=== PATIENT | male | born 1945 | race Caucasian/White ===

== ENCOUNTER 2018-05-01 10:52 | Inpatient (IN) ==
[2018-05-01 11:09] LABS: BE -4.9 mmoll (-3.0-3.0); BLOOD TYPE ARTERIAL; HCO3-(ACT) 20.8 mmoll (20.0-26.0); METHB 1.1 % (0.0-1.5); SAMPLE BLOOD; SAO2 89.7 % (95.0-100.0); pH(98.6) 7.24 (7.35-7.45)
[2018-05-01 11:12] LABS: MODALITY ROOM AIR; O2HB 86.5 % (95.0-99.0); PCO2(98.6) 54 mmHg (35-45); PO2(98.6) 58 mmHg (60-100)
[2018-05-01 11:13] LABS: ALLEN TEST YES
[2018-05-01 11:23] LABS: BASO# 0.02 X1000 (0.0-0.2); BASO% 0.2 % (0.0-0.8); EOS# 0.02 X1000 (0.0-0.7); EOS% 0.2 % (0.0-10.0); HEMATOCRIT 41.9 % (42.0-52.0); HEMOGLOBIN 13.5 g/dL (14.0-18.0); IMM GRAN# 0.07 X1000 (0.0-0.04); IMM GRAN% 0.7 % (0.0-0.5); LYMPH# 1.31 X1000 (1.2-3.4); LYMPH% 13.8 % (20.5-51.1); MCH 30.1 PG (27-31); MCHC 32.2 g/dL (33-37); MCV 93.5 FL (81-99); MONO# 0.55 X1000 (0.11-0.59); MONO% 5.8 % (1.7-9.3); MPV 11.2 FL (7.4-10.4); NEUT# 7.51 X1000 (1.4-6.5); NEUT% 79.3 % (42.2-75.2); PLT 221 X1000 (130-400); RBC 4.48 XMIL (4.7-6.1); RDW 15.3 % (11.5-14.5); WBC 9.48 X1000 (4.8-10.8)
--- NOTE | 2018-05-01 11:30 | Diag Imaging Result Doc PS360 ---
EXAM: CT HEAD W/O CONTRAST HISTORY: Head injury TECHNIQUE: CT head without contrast COMPARISON: None. FINDINGS: No parenchymal hemorrhage. No epidural or subdural hematoma. No subarachnoid hemorrhage. No mass identified on this noncontrasted exam. No hydrocephalus. No skull fracture. IMPRESSION: No hemorrhage. No injury. This exam was performed using automated exposure control, adjustment of mA or kV according to patient size, and/or use of iterative reconstruction technique. Electronically signed by Yves Bhakta 05/01/2018 11:27 AM
--- NOTE | 2018-05-01 11:32 | Diag Imaging Result Doc PS360 ---
EXAM: CHEST-PORTABLE HISTORY: ams TECHNIQUE: Portable chest single view COMPARISON: None. FINDINGS: The lungs are well expanded. There are increased interstitial markings bilaterally in the mid lungs. No consolidation. The heart is not enlarged. IMPRESSION: Bilateral infiltrates. Electronically signed by Yves Bhakta 05/01/2018 11:30 AM
[2018-05-01 11:40] LABS: INR 1.01; PROTIME 13.8 Seconds (11.0-16.0)
[2018-05-01 11:41] LABS: PTT 30.4 Seconds (22.3-41.8)
--- NOTE | 2018-05-01 11:41 | EKG Report ---
Test Performed on : 05/01/2018 11:40:30 AM Test Reason : ams Blood Pressure : / mmHG Vent. Rate : 065 BPM Atrial Rate : 063 BPM P-R Int : 000 ms QRS Dur : 128 ms QT Int : 506 ms P-R-T Axes : 042 046 -74 degrees QTc Int : 526 ms Undetermined rhythm Nonspecific intraventricular block Cannot rule out Inferior infarct , age undetermined Cannot rule out Anterior infarct , age undetermined Abnormal ECG When compared with ECG of 30-JUL-2010 10:45, Significant changes have occurred Unconfirmed Result
[2018-05-01 11:49] LABS: CALCIUM 8.6 mg/dL (8.8-10.2); CREATININE 1.2 mg/dL (0.7-1.2); POTASSIUM 4.5 mmol/L (3.5-5.1); TOTAL BILIRUBIN 0.6 mg/dL (0.20-1.00); TOTAL PROTEIN 7.4 g/dL (6.3-8.3)
[2018-05-01] MEDS ORDERED: D50W SYRINGE ONE (11:54)
[2018-05-01] MEDS ORDERED: D50W SYRINGE IV ONE ×2 (11:56→13:05)
[2018-05-01 12:15] LABS: CK INDEX 1.8 (0.0-2.5); CK-MB 5.78 ng/mL (0.0-5.0)
[2018-05-01] MEDS: D5 NS 1,000 ML IV SCH (13:19)
--- NOTE | 2018-05-01 14:42 | PROVIDER DOCUMENTATION ---
This chart was entered by Mirian Ibrahim Scribe, acting as scribe for Isaías Vides MD. HPI-Neurological Disorder - General Chief Complaint: Altered Mental Status Stated Complaint: ams Time Seen by Provider: 05/01/18 11:05 Source: EMS Home Medications: Home Medication List Medication Instructions Recorded Confirmed Last Taken Type Amlodipine [Norvasc] 1 tab PO DAILY 05/01/18 05/01/18 Unknown History Atenolol [Tenormin] 100 mg PO DAILY 05/01/18 05/01/18 Unknown History Ezetimibe [Zetia] 1 tab PO DAILY 05/01/18 05/01/18 Unknown History Fluoxetine HCl [Prozac] 10 mg PO DAILY 05/01/18 05/01/18 Unknown History Furosemide [Lasix] 40 mg PO DAILY 05/01/18 05/01/18 Unknown History Glipizide [Glucotrol] 10 mg PO DAILY 05/01/18 05/01/18 Unknown History - History of Present Illness-Neuro Nature of Presenting Problem: Patient is a 73 year old male who presents to the ED via EMS with altered mental status. EMS states patient's found patient unresponsive in his recliner around 1015 this morning. EMS states patient's last saw the patient normal around 0200 this morning. EMS states patient's FSBS was 33 on their arrival. EMS states giving patient 1.5 amps of D50. Severity: reports: moderate Onset/Duration: reports: unsure Timing: reports: still present Context: reports: found unresponsive by family, low blood sugar (33) Character of Altered Mental Status: reports: unresponsive Any recent trauma/injury?: reports: none Associated Symptoms: reports: denies symptoms Similar Symptoms Previously?: No Recently seen or treated by another doctor?: No Review of Systems - Adult - REVIEW OF SYSTEMS - ADULT ROS:: ROS per family () Constitutional: reports: no symptoms reported Eyes: reports: no symptoms reported Ears, Nose, Mouth & Throat: reports: no symptoms reported Cardiovascular: reports: no symptoms reported Respiratory: reports: no symptoms reported Gastrointestinal: reports: no symptoms reported Genitourinary: reports: no symptoms reported Musculoskeletal: reports: no symptoms reported Integumentary: reports: no symptoms reported Neurological: reports: other (AMS - unresponsive). denies: dizziness/vertigo, headache/migraines, numbness, seizure Psychiatric: reports: no symptoms reported Endocrine: reports: no symptoms reported Hematologic/Lymphatic: reports: no symptoms reported Allergic/Immunologic: reports: no symptoms reported All Other Systems: Reviewed and Negative Past History - Adult - PAST MEDICAL HISTORY-ADULT Review of Records: reports: Nursing Assessment Review, Medications Reviewed, Social history reviewed & non-contributory. Major Childhood Illnesses: reports: denies history Cardiovascular: reports: denies history Respiratory: reports: denies history Gastrointestinal: reports: denies history Obstetrical/Gynecological: reports: denies history Genitourinary: reports: denies history Musculoskeletal: reports: denies history Neurological: reports: denies history Endocrine/Immune: reports: denies history Other Conditions: reports: denies history - PRIOR SURGERIES/PROCEDURES Surgical/Procedure History: reports: reviewed, not pertinent - IMMUNIZATION STATUS Childhood Immunizations: See Nurse Assessment Flu Vaccine: See Nurse Assessment - FAMILY HISTORY Family History: reviewed, not pertinent Physical Exam- Neurological - Physical Exam-Neuro Initial Vital Signs Reviewed: Yes General Appearance: lethargic, other (posturing) Eye Exam: bilateral eye: other (2 mm ) Head Injury: no evidence of injury Respiratory: chest non-tender, lungs clear, normal breath sounds Cardiovascular: normal peripheral pulses, regular rate, rhythm Abdominal Exam: normal bowel sounds, non tender, soft Extremity: other (post surgical changes to left foot. 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48 RBC 4.48 L Hgb 13.5 L Hct 41.9 L MCV 93.5 MCH 30.1 MCHC 32.2 L RDW Std Deviation 15.3 H Plt Count 221 MPV 11.2 H Immature Gran % (Auto) 0.7 H Neut % (Auto) 79.3 H Lymph % (Auto) 13.8 L [place] % (Auto) 5.8 Eos % (Auto) 0.2 Baso % (Auto) 0.2 Immature Gran # (Auto) 0.07 H Neut # (Auto) 7.51 H Lymph # (Auto) 1.31 [place] # (Auto) 0.55 Eos # (Auto) 0.02 Baso # (Auto) 0.02 PT INR PTT (Actin FS) Specimen Type ARTERIAL Sample Site R RADIAL pH 7.24 L pCO2 54 H* pO2 58 L HCO3 20.8 Base Excess -4.9 L Oxyhemoglobin 86.5 L* ABG O2 Sat (Calculated) 17.0 ABG O2 Saturation 89.7 L ABG Carboxyhemoglobin 2.50 ABG Methemoglobin 1.1 Jose Test YES A-a O2 Difference 24.0 Total Hemoglobin 14.0 Lactate 3.40 H Blood Gas Modality ROOM AIR FiO2 % 21.0 Sodium Potassium Chloride Carbon Dioxide Anion Gap BUN Creatinine Estimated GFR/1.73 m2 BUN/Creatinine Ratio Glucose POC Glucose 101 Calculated Osmolality Calcium Total Bilirubin AST ALT Alkaline Phosphatase Creatine Kinase Creatine Kinase Index CK-MB (CK-2) Troponin T Total Protein Albumin Globulin Albumin/Globulin Ratio Plasma Lactate 05/01/18 05/01/18 05/01/18 11:15 11:15 11:15 WBC RBC Hgb Hct MCV MCH MCHC RDW Std Deviation Plt Count MPV Immature Gran % (Auto) Neut % (Auto) Lymph % (Auto) [place] % (Auto) Eos % (Auto) Baso % (Auto) Immature Gran # (Auto) Neut # (Auto) Lymph # (Auto) [place] # (Auto) Eos # (Auto) Baso # (Auto) PT 13.8 INR 1.01 PTT (Actin FS) 30.4 Specimen Type Sample Site pH pCO2 pO2 HCO3 Base Excess Oxyhemoglobin ABG O2 Sat (Calculated) ABG O2 Saturation ABG Carboxyhemoglobin ABG Methemoglobin Jose Test A-a O2 Difference Total Hemoglobin Lactate Blood Gas Modality FiO2 % Sodium 140 Potassium 4.5 Chloride 103 Carbon Dioxide 22 L Anion Gap 15 BUN 30 H Creatinine 1.2 Estimated GFR/1.73 m2 60 BUN/Creatinine Ratio 25 Glucose 117 H POC Glucose Calculated Osmolality 287 Calcium 8.6 L Total Bilirubin 0.60 AST 29 ALT 28 Alkaline Phosphatase 105 Creatine Kinase 319 H Creatine Kinase Index 1.8 CK-MB (CK-2) 5.78 H Troponin T Total Protein 7.4 Albumin 4.0 Globulin 3.0 Albumin/Globulin Ratio 1.0 Plasma Lactate 3.3 H 05/01/18 05/01/18 05/01/18 11:15 11:55 12:59 WBC RBC Hgb Hct MCV MCH MCHC RDW Std Deviation Plt Count MPV Immature Gran % (Auto) Neut % (Auto) Lymph % (Auto) [place] % (Auto) Eos % (Auto) Baso % (Auto) Immature Gran # (Auto) Neut # (Auto) Lymph # (Auto) [place] # (Auto) Eos # (Auto) Baso # (Auto) PT INR PTT (Actin FS) Specimen Type Sample Site pH pCO2 pO2 HCO3 Base Excess Oxyhemoglobin ABG O2 Sat (Calculated) ABG O2 Saturation ABG Carboxyhemoglobin ABG Methemoglobin Jose Test A-a O2 Difference Total Hemoglobin Lactate Blood Gas Modality FiO2 % Sodium Potassium Chloride Carbon Dioxide Anion Gap BUN Creatinine Estimated GFR/1.73 m2 BUN/Creatinine Ratio Glucose POC Glucose 68 L 65 L Calculated Osmolality Calcium Total Bilirubin AST ALT Alkaline Phosphatase Creatine Kinase Creatine Kinase Index CK-MB (CK-2) Troponin T < 0.010 Total Protein Albumin Globulin Albumin/Globulin Ratio Plasma Lactate Orders Category Date Time Status Cardiac Monitoring DIRECTED Care 05/01/18 11:03 Active Finger Stick Blood Sugar (ED) DIRECTED Care 05/01/18 11:03 Active Oxygen Therapy- ED Nursing DIRECTED Care 05/01/18 11:03 Active Saline Loc NOW Care 05/01/18 11:03 Active CHEST-PORTABLE [RAD] Stat Exams 05/01/18 11:[address] HEAD W/O CONTRAST [CT] Stat Exams 05/01/18 11:03 Completed ABG [RESP] Routine Lab 05/01/18 10:57 Completed CBC WITH ELECTRONIC DIFF [HEME] Stat Lab 05/01/18 11:15 Completed CK PROFILE [SP CHEM] Stat Lab 05/01/18 11:15 Completed COMPREHENSIVE METABOLIC PANEL [CHEM] Stat Lab 05/01/18 11:15 Completed LACTATE, PLASMA [CHEM] Stat Lab 05/01/18 11:15 Completed PROTIME WITH INR [COAG] Stat Lab 05/01/18 11:15 Completed PTT [COAG] Stat Lab 05/01/18 11:15 Completed TROPONIN T Stat Lab 05/01/18 11:15 Completed Dextrose 50% Syringe [D50w Syringe] Med 05/01/18 11:54 Discontinued 50 ml .ROUTE .STK-MED ONE Dextrose 50% Syringe [D50w Syringe] Med 05/01/18 11:56 Discontinued 50 ml IV NOW ONE Altered Mental Status Stat Oth 05/01/18 11:02 Ordered EKG [EKG] Stat Ther 05/01/18 11:03 Draft Transfer/Admit Order [TRANSFER] Routine Transfer 05/01/18 12:21 Ordered Result Diagrams: 05/01/18 11:15 05/01/18 11:15 - EKG 1 Time of EKG reading by physician:: 11:40 EKG Read and Signed by:: Isaías Vides EKG Interpretation (*Must complete 3 of following elements*): Abnormal (cannot rule out inferior infarct, age undetermined; cannot rule out anterior infarct, age undetermined) Rate: 65 Rhythm: undetermined rhythm Comments: nonspecific intraventricular block; - XRAY 1 XRAY Study: Chest Impression: See EMR Report ( EXAM: CHEST-PORTABLE HISTORY: ams TECHNIQUE: Portable chest single view COMPARISON: None. FINDINGS: The lungs are well expanded. There are increased interstitial markings bilaterally in the mid lungs. No consolidation. The heart is not enlarged. IMPRESSION: Bilateral infiltrates. Electronically signed by Yves Bhakta 05/01/2018 11:30 AM 05/01/18 1130 Interpreting Physician: Yves Bhakta MD Dictated Date/Time: 05/01/18 1129 cc: Isaías Vides MD;) - CT/MRI 1 CT Study: Head Impression: See EMR Report ( EXAM: CT HEAD W/O CONTRAST HISTORY: Head injury TECHNIQUE: CT head without contrast COMPARISON: None. FINDINGS: No parenchymal hemorrhage. No epidural or subdural hematoma. No subarachnoid hemorrhage. No mass identified on this noncontrasted exam. No hydrocephalus. No skull fracture. IMPRESSION: No hemorrhage. No injury. This exam was performed using automated exposure control, adjustment of mA or kV according to patient size, and/or use of iterative reconstruction technique. Electronically signed by Yves Bhakta 05/01/2018 11:27 AM 05/01/18 1127 Interpreting Physician: Yves Bhakta MD Dictated Date/Time: 05/01/18 1123 cc: Isaías Vides MD;) - CONSULTS/PCP/HOSPITALIST Notification #1 *Consult/PCP/Hospitalist*: Dr. Reina Time Discussed: 11:52 Reason/Comments: Dr. Vides consulted with Dr. Reina about patient. Consult Disposition: Will see in ED, Admit Departure - Departure Date of Disposition Decision: 05/01/18 Time of Disposition Decision: 12:00 DIAGNOSIS: Altered mental status, Hypoglycemia Disposition: ADMITTED INPATIENT 09 Certified Medical Emergency: Emergent Condition: Fair - Critical Care Note This patient required my direct & personal management of CC.: Yes Total Time (mins): 31 Critical Care Statement: This patient required my direct personal management to treat or rule out processes, the absence of which, could potentiallly result in sudden, clinically significant life or limb threatening deterioration. Attestation - Physician/ POLLY Attestation The physician spent face to face time with patient:: Yes Advanced Practice Provider documentation review:: Supervising physician onsite and consulted in the evaluation and care of this patient. The physician did have a face to face encounter with the patient. This chart was documented by the indicated scribe, (Mirian Ibrahim Scribe) and accurately reflects the services I performed and decisions made by me, Isaías Vides MD, as attested by the provider's signature.
[2018-05-01] MEDS ORDERED: ZITHROMAX 500 MG/NS 500 MG/250 ML IVPB ONE (14:43)
[2018-05-01] MEDS: DUONEB (A & A) INH SCH ×3 (14:55→22:42)
[2018-05-01] MEDS: ZITHROMAX 500 MG/NS 500 MG/250 ML IVPB IV SCH (14:55)
--- NOTE | 2018-05-01 15:17 | HISTORY AND PHYSICAL ---
PRIMARY CARE PHYSICIAN: Dr. Bin Newman. CHIEF COMPLAINT: Found unresponsive by this morning around 1015 hours. HISTORY OF PRESENTING ILLNESS: This is a 73-year-old male, who presents to [facility] ER via EMS after he was found unresponsive this morning in his recliner around 1015 hours. The states that she last saw him normal around 2 a.m. the morning of arrival today. When EMS arrived, his blood sugar was 33. They gave him 1.5 amps of D 50. When he arrived to the emergency room, he had an O2 saturation on room air of 95. His core temp was 92.3. We did a chest x-ray also that showed bilateral infiltrates. He was placed on a Bear Hugger and his temperature is now up to 97.5. His blood sugar is now up to 95. In the emergency room he was given another 50 mL of D 50. Placed on D 5 NS at 50 mL an hour, and is being admitted to the intensive care unit for further evaluation and treatment. PAST MEDICAL HISTORY: Diabetes type 2, hypertension, restless leg syndrome, hyperlipidemia, depression and insomnia. PAST SURGICAL HISTORY: A melanoma removed from his head and neck. FAMILY HISTORY: Reviewed and noncontributory. SOCIAL HISTORY: Currently lives with family. He is a former smoker, but denies any current use. Denies any alcohol or illicit drug use. ALLERGIES: Unknown at this time. HOME MEDICATIONS: He takes Norvasc 10 mg p.o. daily, Tenormin 100 mg p.o. daily, Zetia 10 mg p.o. daily, Prozac 10 mg p.o. daily, Lasix 40 mg p.o. daily and glipizide 10 mg p.o. daily will be held. We will give all of his other home medications starting in the a.m. LABORATORY DATA: Showed a white blood cell count of 9.48, hemoglobin 13.5, hematocrit 41.9, platelets 221. PT and INR of 13.8 and 1.01. ABG showed a pH of 7.24, pCO2 54, PO2 58, bicarbonate 20.8 and this was on room air. Sodium of 140, potassium 4.5, chloride 103, CO2 22. BUN of 30, creatinine 1.2, glucose 117. It did drop again at 1155 hours down to 68. It got as low at 1 o'clock at 58, now up to 95. His plasma lactate is 3.3. X-RAYS: Chest x-ray showed bilateral infiltrates. Head CT showed no hemorrhage, no injury. REVIEW OF SYSTEMS: He denied any fever, chills, blurred vision, dizziness, chest pain. He has had a nonproductive cough, some shortness of breath. He states that this past Friday he had an allergic reaction to some shrimp that he ate, but did not go to any ER, so it is unclear if any of these issues are related to that possibly, but had no further problems since then, except the shortness of breath. Denied any abdominal pain, constipation, diarrhea, burning or hurting with urination. PHYSICAL EXAMINATION: VITAL SIGNS: He was noted to have a temperature of 92.3 degrees, pulse 63, respirations 12, blood pressure 102/75. satting 85% on room air, currently satting 97% on O2 via nasal cannula. Was placed on a Bear Hugger and temperature is now up to 97.5. GENERAL: This is a 73-year-old male, who is alert and awake, oriented to person, place, and time and answers all questions appropriately. HENT: Normocephalic, atraumatic. Normal ENT inspection. Oropharynx and nares are clear. EYES: Pupils are equal, round, reactive to light and accommodation. Extraocular movements are intact. NECK: Normal inspection, normal range of motion. LUNGS: Clear to auscultation bilaterally with equal lung expansion and chest wall movement. HEART: With regular rate and rhythm. No murmurs, rubs, or gallops. ABDOMEN: Soft, nontender, nondistended. Bowel sounds are present x4 quadrants. MUSCULOSKELETAL: He has 5/5 strength x4 extremities. NEUROLOGICAL: The cranial nerves 2-12 appear grossly intact. ASSESSMENT: 1. Diabetes type 2 with hypoglycemia. 2. Bilateral pneumonia. 3. Acute respiratory failure. 4. Sepsis secondary to all the above. PLAN: He is being admitted to the intensive care unit here at [place]. Placed on telemetry, O2 per protocol. DuoNebs q. 4 hours. He is on D 5 NS at 50 mL an hour, Rocephin 1 gram IV q. 24 hours and azithromycin 500 IV q. 24 hours. Continue his home medications. Place on neuro checks q. 2 hours, and we will do pattern blood sugars q. 4 hours. Hold his diabetic medications at this time and recheck a CBC, BMP in the a.m. Further orders after seen by attending. Dictated by LISA Gauthier for Belinda Reina MD Patient was seen by me face to face, and I agree the assessment and plan of nurse practitioner Ms. Jin. Belinda Reina MD cc: LISA Gauthier MD Chad Mcelroy, MD MTDD
[2018-05-01] MEDS: ROCEPHIN 1 GM in NS 50 ML IV SCH (16:16)
[2018-05-01 17:08] LABS: BILIRUBIN URINE NEGATIVE (NEGATIVE); BLOOD URINE NEGATIVE (NEGATIVE); CLARITY CLEAR (CLEAR); COLOR YELLOW; GLUCOSE URINE NEGATIVE (NEGATIVE); KETONE URINE NEGATIVE (NEGATIVE); LEUKOCYTES URINE TRACE (NEGATIVE); NITRITE URINE NEGATIVE (NEGATIVE); PROTEIN URINE TRACE mg/dL (NEGATIVE); UROBILINOGEN URINE NORMAL
[2018-05-01 17:14] LABS: URINE BACTERIA 1+ /HFP; URINE EPITHELIAL CELLS <10 /HPF (<10); URINE RBC <10 /HPF (<10); URINE SOURCE CLEAN CATCH; URINE WBC <10 /HPF (<10)
[2018-05-01 17:15] LABS: URINE CAST NONE SEEN /LPF; URINE CRYSTAL NONE SEEN /HPF; URINE YEAST NONE SEEN /HPF
[2018-05-02] MEDS: DUONEB (A & A) INH SCH ×4 (03:12→16:31)
[2018-05-02] MEDS: TENORMIN PO SCH (08:52)
[2018-05-02] MEDS: PROZAC PO SCH (08:52)
[2018-05-02] MEDS: LASIX PO SCH (08:52)
[2018-05-02] MEDS: NORVASC PO SCH (08:52)
[2018-05-02] MEDS: D5 NS 1,000 ML IV SCH (08:52)
[2018-05-02] MEDS: ZETIA PO SCH (08:52)
[2018-05-02] MEDS ORDERED: NS 1,000 ML IV SCH ×2 (09:45→15:03)
--- NOTE | 2018-05-02 12:34 | PROGRESS NOTE ---
DATE: 05/02/2018 SUBJECTIVE: The patient denies having any acute complaints this morning and feels much better. OBJECTIVE: Vital Signs: Temperature 99.2 degrees, pulse 72 per minute, respiratory rate 21 per minute, blood pressure 145/63, pulse oximetry 96 percent on 4 L of oxygen via nasal cannula. General: The patient is alert and oriented x3. He does not appear to be in any acute distress. Cardiovascular System: First and second heart sounds are audible without any murmurs or gallops. Respiratory System: Bilateral lung air entry is moderately decreased, with no rales or rhonchi present on auscultation. Gastrointestinal System: The patient is obese. Abdomen is soft and nontender. Normal bowel sounds are present. DIAGNOSTIC DATA: Arterial blood gases showed a pH of 7.24, a pCO2 of 54, and a pO2 of 58 on room air. Chest x-ray done yesterday showed bilateral infiltrates. IMPRESSION: 1. Type 2 diabetes mellitus with hypoglycemia, that has now improved. 2. Bilateral pneumonia. 3. Acute respiratory failure with hypoxemia secondary to pneumonia. 4. Sepsis. PLAN: The patient was initially kept in the intensive care unit and was initiated on IV fluids along with IV ceftriaxone and azithromycin. He has been given supplemental oxygen and was given D5W intravenously for his hypoglycemia. His condition has since improved and therefore, I have discontinued IV D5 and instead started him on normal saline at 75 mL/hour. He will also be initiated on lispro insulin subcutaneously as per sliding scale as per protocol. Since his condition has improved he is going to be transferred to a regular floor today. I am going to obtain labs including CBC, BMP, and magnesium levels in the morning tomorrow. I am also going to repeat chest x-ray in the morning for further evaluation. Further recommendations will be given as per hospital course. cc: Belinda Reina MD
[2018-05-02] MEDS: HUMALOG (PARKWAY) SUBQ SCH ×3 (12:39→21:48)
[2018-05-02] MEDS: ROCEPHIN 1 GM in NS 50 ML IV SCH (14:04)
[2018-05-02] MEDS: ZITHROMAX 500 MG/NS 500 MG/250 ML IVPB IV SCH (14:45)
[2018-05-02] MEDS ORDERED: TYLENOL PO PRN (15:54)
[2018-05-03] MEDS: HUMALOG (PARKWAY) SUBQ SCH ×4 (06:23→21:09)
[2018-05-03] MEDS: DUONEB (A & A) INH SCH ×6 (06:45→23:10)
[2018-05-03 06:48] LABS: BASO# 0.04 X1000 (0.0-0.2); BASO% 0.5 % (0.0-0.8); EOS% 2.5 % (0.0-10.0); HEMATOCRIT 36.9 % (42.0-52.0); HEMOGLOBIN 11.7 g/dL (14.0-18.0); IMM GRAN# 0.03 X1000 (0.0-0.04); IMM GRAN% 0.4 % (0.0-0.5); LYMPH# 2.16 X1000 (1.2-3.4); LYMPH% 27.1 % (20.5-51.1); MCH 29.5 PG (27-31); MCHC 31.7 g/dL (33-37); MCV 93.2 FL (81-99); MONO# 0.93 X1000 (0.11-0.59); MONO% 11.7 % (1.7-9.3); MPV 11.2 FL (7.4-10.4); NEUT# 4.61 X1000 (1.4-6.5); NEUT% 57.8 % (42.2-75.2); PLT 205 X1000 (130-400); RBC 3.96 XMIL (4.7-6.1); WBC 7.97 X1000 (4.8-10.8)
[2018-05-03 07:11] LABS: AGAP 13; BUN 19 mg/dL (8-22); CALCIUM 7.9 mg/dL (8.8-10.2); CHLORIDE 104 mmol/L (98-107); COSMO 281; ESTIMATED GFR > 60; GLUCOSE 90 mg/dL (70-104); SODIUM 140 mmol/L (136-145); TCO2 23 mmol/L (25-35)
--- NOTE | 2018-05-03 08:14 | Diag Imaging Result Doc PS360 ---
CHEST-PORTABLE - 05/03/2018 INDICATION: Pneumonia COMPARISON: 05/01/2018 FINDINGS: There is worsening in the diffuse bilateral central infiltrates. Heart size remains top normal. There are probably small pleural effusions. IMPRESSION: Worsening central infiltrates most compatible with pulmonary edema. Probable small pleural effusions. Electronically signed by Sal Hdz 05/03/2018 8:12 AM
[2018-05-03] MEDS: NORVASC PO SCH (08:52)
[2018-05-03] MEDS: PROZAC PO SCH (08:52)
[2018-05-03] MEDS: LASIX PO SCH (08:52)
[2018-05-03] MEDS: ZETIA PO SCH (08:52)
[2018-05-03] MEDS: TENORMIN PO SCH (08:52)
[2018-05-03] MEDS: LASIX IV ONE ×2 (08:53→09:45)
--- NOTE | 2018-05-03 09:56 | PROGRESS NOTE ---
DATE: 05/03/2018 SUBJECTIVE: The patient denies having any acute complaints this morning, and feels somewhat better. OBJECTIVE: Vital Signs: Temperature 97.8 degrees, pulse 74 per minute, respiratory rate 20 per minute, blood pressure 173/85, pulse ox 97% on 3 L of oxygen via nasal cannula. General: The patient is alert and oriented x3. He does not appear to be in any acute distress. Cardiovascular: First and second heart sounds are audible without any murmurs or gallops. Respiratory: Bilateral lung air entry is moderately decreased, but there are no rales or rhonchi present on auscultation. Gastrointestinal: Abdomen is benign. DIAGNOSTIC DATA: CBC shows a hemoglobin of 11.7 and hematocrit 36.9. Rest of the CBC is nondiagnostic. In comparison, his hemoglobin and hematocrit were 13.5 and 41.9 yesterday. Basic metabolic panel is nondiagnostic. Chest x-ray obtained this morning showed worsening central infiltrates, most compatible with pulmonary edema, along with probable small pleural effusions. His chest x-ray on admission had shown bilateral infiltrates consistent with pneumonia. IMPRESSION: 1. Type 2 diabetes mellitus with hypoglycemia that has now improved. 2. Bilateral pneumonia. 3. Acute respiratory failure with hypoxemia and fluid overload. 4. Possible sepsis. PLAN: The patient has bilateral pneumonia, for which he has been getting ceftriaxone and azithromycin intravenously, which will be continued. He does have fluid overload, because of which I am going to give him a single dose of furosemide 40 mg IV today. His oxygenation should improve with that. He does have slightly elevated blood pressure, because of which I am going to keep him on amlodipine 10 mg daily, along with atenolol 100 mg daily, and also start him on losartan 50 mg orally once daily. Further recommendation will be given as per hospital course. cc: Belinda Reina MD
[2018-05-03] MEDS: COZAAR PO SCH (10:16)
[2018-05-03] MEDS ORDERED: DUONEB (A & A) INH PRN (11:23)
[2018-05-03] MEDS: ROCEPHIN 1 GM in NS 50 ML IV SCH (13:19)
[2018-05-03] MEDS: ZITHROMAX 500 MG/NS 500 MG/250 ML IVPB IV SCH (13:53)
[2018-05-04] MEDS: DUONEB (A & A) INH SCH ×6 (03:22→22:53)
[2018-05-04 05:43] LABS: BE 1.5 mmoll (-3.0-3.0); BLOOD TYPE ARTERIAL; METHB 0.9 % (0.0-1.5); O2(CT) 15.5 mL/dL (15.0-23.0); O2HB 93.7 % (95.0-99.0); PCO2(98.6) 43 mmHg (35-45); PO2(98.6) 71 mmHg (60-100); SAMPLE BLOOD; SAO2 97.2 % (95.0-100.0); THB 11.7 g/dL (11.5-17.4)
[2018-05-04 05:44] LABS: ALLEN TEST YES; MODALITY ROOM AIR
[2018-05-04 06:40] LABS: BASO# 0.03 X1000 (0.0-0.2); BASO% 0.4 % (0.0-0.8); EOS% 3.9 % (0.0-10.0); HEMOGLOBIN 11.6 g/dL (14.0-18.0); IMM GRAN# 0.03 X1000 (0.0-0.04); IMM GRAN% 0.4 % (0.0-0.5); LYMPH# 1.99 X1000 (1.2-3.4); LYMPH% 26.1 % (20.5-51.1); MCH 29.3 PG (27-31); MCHC 31.4 g/dL (33-37); MCV 93.4 FL (81-99); MONO# 0.79 X1000 (0.11-0.59); MONO% 10.4 % (1.7-9.3); NEUT# 4.47 X1000 (1.4-6.5); NEUT% 58.8 % (42.2-75.2); PLT 202 X1000 (130-400); RBC 3.96 XMIL (4.7-6.1); RDW 14.9 % (11.5-14.5); WBC 7.61 X1000 (4.8-10.8)
[2018-05-04] MEDS ORDERED: ZITHROMAX 500 MG/NS 500 MG/250 ML IVPB IV SCH (06:49)
[2018-05-04 07:03] LABS: AGAP 12; BUN 19 mg/dL (8-22); CALCIUM 8.3 mg/dL (8.8-10.2); CHLORIDE 105 mmol/L (98-107); COSMO 286; CREATININE 0.9 mg/dL (0.7-1.2); ESTIMATED GFR > 60; GLUCOSE 148 mg/dL (70-104); SODIUM 141 mmol/L (136-145); TCO2 24 mmol/L (25-35)
[2018-05-04] MEDS: HUMALOG (PARKWAY) SUBQ SCH ×4 (07:21→20:37)
[2018-05-04] MEDS: COZAAR PO SCH (09:46)
[2018-05-04] MEDS: ZETIA PO SCH (09:46)
[2018-05-04] MEDS: LASIX PO SCH (09:46)
[2018-05-04] MEDS: TENORMIN PO SCH (09:46)
[2018-05-04] MEDS: ZITHROMAX PO SCH (09:47)
[2018-05-04] MEDS: PROZAC PO SCH (09:47)
[2018-05-04] MEDS: NORVASC PO SCH (09:47)
--- NOTE | 2018-05-04 14:59 | PROGRESS NOTE ---
DATE: 05/04/2018 SUBJECTIVE: Patient notes that he is feeling a little bit better. Still having some coughing and congestion but, overall, his breathing has improved. PHYSICAL EXAMINATION: Vital Signs: Temperature 97, pulse 60, respiratory rate 18, BP 119/56, saturation of 100% currently on 3 L. General: Patient is an obese male who currently is in no respiratory distress. Pleasant to talk with. HEENT: Normocephalic. Neck: Supple. Cardiovascular: Regular rate. No murmurs. Chest: Good air movement. No crackles. No wheezing. Abdomen: Soft and nondistended. Extremities: Moves all extremities. ASSESSMENT: 1. Bilateral pneumonia. 2. Hypoxic respiratory failure. 3. Type 2 diabetes with hyperglycemia, improved. 4. Obesity. 5. Hypertension. PLAN: We will continue the patient on his current blood pressure medications as his blood pressure this morning was 119/56. He is saturating 100% on 3 L. We will continue to try to wean his oxygen as he is not on oxygen at home. He may be able to discharge home over the next 1 or 2 days if he no longer needs oxygen. cc: Juan Pablo Sweet MD
[2018-05-04] MEDS: ROCEPHIN 1 GM in NS 50 ML IV SCH (15:27)
[2018-05-05] MEDS: DUONEB (A & A) INH SCH ×6 (03:23→23:09)
[2018-05-05 06:35] LABS: HEMATOCRIT 34.9 % (42.0-52.0); MCH 29.5 PG (27-31); MCHC 31.5 g/dL (33-37); MCV 93.6 FL (81-99); MPV 10.8 FL (7.4-10.4); RBC 3.73 XMIL (4.7-6.1); RDW 14.7 % (11.5-14.5); WBC 7.1 X1000 (4.8-10.8)
[2018-05-05] MEDS: HUMALOG (PARKWAY) SUBQ SCH ×4 (06:36→21:43)
[2018-05-05 06:59] LABS: AGAP 12; BUN 17 mg/dL (8-22); CALCIUM 8.3 mg/dL (8.8-10.2); CHLORIDE 102 mmol/L (98-107); COSMO 282; CREATININE 0.9 mg/dL (0.7-1.2); ESTIMATED GFR > 60; GLUCOSE 158 mg/dL (70-104); POTASSIUM 4.2 mmol/L (3.5-5.1); SODIUM 139 mmol/L (136-145); TCO2 25 mmol/L (25-35)
[2018-05-05] MEDS: NORVASC PO SCH (08:46)
[2018-05-05] MEDS: ZETIA PO SCH (08:46)
[2018-05-05] MEDS: LASIX PO SCH (08:46)
[2018-05-05] MEDS: ZITHROMAX PO SCH (08:47)
[2018-05-05] MEDS: TENORMIN PO SCH (08:47)
[2018-05-05] MEDS: COZAAR PO SCH (08:47)
[2018-05-05] MEDS: PROZAC PO SCH (08:47)
[2018-05-05] MEDS: ROCEPHIN 1 GM in NS 50 ML IV SCH (14:40)
--- NOTE | 2018-05-05 22:09 | PROGRESS NOTE ---
DATE: 05/04/2018 SUBJECTIVE: The patient notes overall he is feeling a lot better. Denies any chest pain, palpitations. His shortness of breath is improved. PHYSICAL EXAMINATION: Vital signs: Temperature 97.4 degrees, pulse 71, respiratory 20, BP 143/88, saturation 97% on 1 L. Unfortunately, it dropped down to 87% with ambulation. HEENT: Normocephalic. Neck: Supple. CARDIOVASCULAR: Regular rate. Chest: Clear. Abdomen: Soft. Extremities: Moves all extremities. ASSESSMENT: 1. Acute hypoxic respiratory failure. 2. Fluid overloaded, improved. 3. Type 2 diabetes. 4. Bilateral pneumonia. PLAN: We will continue the patient in the hospital today. We will continue to attempt to wean his oxygen. We will continue to follow. We will attempt to wean oxygen. Hopefully, this will be successful, and he can be discharged home tomorrow. cc: Juan Pablo Sweet MD
[2018-05-06] MEDS: DUONEB (A & A) INH SCH ×3 (03:26→11:30)
[2018-05-06] MEDS: HUMALOG (PARKWAY) SUBQ SCH ×2 (06:14→11:05)
[2018-05-06 06:53] LABS: HEMATOCRIT 37.9 % (42.0-52.0); HEMOGLOBIN 11.8 g/dL (14.0-18.0); MCHC 31.1 g/dL (33-37); MCV 93.1 FL (81-99); MPV 10.6 FL (7.4-10.4); RBC 4.07 XMIL (4.7-6.1); RDW 14.7 % (11.5-14.5); WBC 7.07 X1000 (4.8-10.8)
[2018-05-06 07:11] LABS: AGAP 12; BUN 16 mg/dL (8-22); CALCIUM 8.6 mg/dL (8.8-10.2); CHLORIDE 103 mmol/L (98-107); COSMO 284; CREATININE 0.8 mg/dL (0.7-1.2); ESTIMATED GFR > 60; GLUCOSE 135 mg/dL (70-104); POTASSIUM 3.8 mmol/L (3.5-5.1); SODIUM 141 mmol/L (136-145); TCO2 26 mmol/L (25-35)
[2018-05-06 07:26] VITALS: BP 144/68
--- NOTE | 2018-05-06 07:42 | Diag Imaging Result Doc PS360 ---
EXAM: CHEST-2 VIEWS INDICATION: hypoxia TECHNIQUE: 2 views COMPARISON: 05/03/2018 FINDINGS: Pulmonary venous congestion and central infiltrates suggesting edema have improved somewhat during the interval. No new consolidations are identified. No definite pleural fluid collection can be identified on the current study. Cardiac silhouette is stable IMPRESSION: Interval improvement of pulmonary edema and pulmonary venous congestion as described. Electronically signed by Conner Floyd 05/06/2018 7:40 AM
[2018-05-06] MEDS: ZITHROMAX PO SCH (08:42)
[2018-05-06] MEDS: COZAAR PO SCH (08:43)
[2018-05-06] MEDS: NORVASC PO SCH (08:43)
[2018-05-06] MEDS: ZETIA PO SCH (08:43)
[2018-05-06] MEDS: PROZAC PO SCH (08:43)
[2018-05-06] MEDS: TENORMIN PO SCH (08:43)
[2018-05-06] MEDS: LASIX PO SCH (08:43)
[2018-05-06] MEDS ORDERED: OMNICEF PO SCH (09:00)
--- NOTE | 2018-05-06 13:54 | DISCHARGE SUMMARY ---
ADMISSION DATE: 05/01/2018 DISCHARGE DATE: 05/06/2018 DISCHARGE DIAGNOSES: 1. Hypoxic respiratory failure. 2. Bilateral pneumonia. 3. Diabetes mellitus type 2 with hypoglycemia. 4. Sepsis resolved. 5. Hypertension. DIAGNOSTICS: 1. 05/01/2018, chest x-ray revealed bilateral infiltrates. 2. 05/01/2018, CT of the head revealed no hemorrhage. No injury. 3. 05/03/2018, chest x-ray revealed worsening central infiltrates and most compatible with pulmonary edema. Probable small pleural effusions. 4. 05/06/2018, chest x-ray revealed interval improvement of pulmonary edema and pulmonary venous congestion. 5. Microbiology: Urine culture revealed no growth. HOSPITAL COURSE: Mr. Darden presented to the emergency room after being found unresponsive with a blood sugar of 33 on EMS arrival. Once treated, blood sugars have remained primarily in the 140s to 200 range. He is found to have bilateral infiltrates for which he was initially treated with IV Rocephin and azithromycin. He has been transitioned over to Omnicef and azithromycin on discharge. On 05/05, he had room air sats on walking of 87%. When placed back on 2 L nasal cannula, he quickly recovered to 96%. Today, O2 saturation on room air while sitting were 93%. On walking, his sat dropped to 84%. After being placed back on 2 L nasal cannula, sats increased to 96 to 97%. Home O2 has been arranged for the patient. DISCHARGE PHYSICAL EXAMINATION: Cardiovascular: Regular rate and rhythm. S1 and S2 appreciated. Pulmonary: Breath sounds are clear. No increased work of breathing noted. Gastrointestinal: Abdomen is soft, nontender, and nondistended. Bowel sounds in all 4 quadrants. Neurologic: He is alert and oriented. Discharge vital signs: Blood pressure is 144/68 with a heart rate of 66, respirations 18, and temperature 97.8 degrees oral with O2 saturations of 93 to 96% on 2 L nasal cannula. DISCHARGE MEDICATIONS: 1. Glipizide 10 mg p.o. daily. 2. Lasix 40 mg p.o. daily. 3. Norvasc 10 mg p.o. daily. 4. Prozac 10 mg p.o. daily. 5. Atenolol 100 mg p.o. daily. 6. Zetia 10 mg p.o. daily. 7. Losartan 50 mg p.o. daily, 8. DuoNeb q.4 hours. 9. Omnicef 300 mg p.o. b.i.d. x5 days, 10. Zithromax 250 mg p.o. daily x5 days. FOLLOW-UP: 1. He is to follow up with his primary care physician Bin Nathan. He has been instructed to call to schedule an appointment on 05/09. As the office is closed, we are unable to schedule one for him. This has been given to him in writing as well as verbally. 2. He has been instructed to call to be seen sooner or return to the emergency room for any syncope, dizziness, chest pain, palpitations, increasing shortness of breath, temperature of 101 degrees, any nausea, vomiting, diarrhea, constipation, black or bloody vomitus or stools. We did hold the patient's Victoza and Levemir. He can discuss restarting any medications with his primary care physician at his followup visit. He is being discharged home in stable condition with family members. TIME SPENT: This is a greater than 30 minute discharge. Dictated by LISA Maria for Juan Pablo Sweet MD This chart was documented by, LISA Maria and accurately reflects the services performed, treatment plan and medical decisions as attested by the providers signature Juan Pablo Sweet MD. cc: LISA Maria MD Chad Mcelroy, MD MTDD
--- NOTE | 2018-05-07 01:51 | DISCHARGE SUMMARY ---
ADMISSION DATE: 05/01/2018 DISCHARGE DATE: 05/06/2018 ADDENDUM: Patient seen and examined by myself. Full note dictated and discussed with nurse practitioner. Patient notes overall he is feeling better. Breathing is improved. He is actually off oxygen while he is sitting still, however, when he attempts to walk his O2 saturations drop to 84% to 87%. We will discharge patient home. We will place him on oxygen, continue antibiotics and steroids at home. cc: Juan Pablo Sweet MD
== END 2018-05-06 11:57 | disposition home or self-care (01) | DRG 871 ==
LOC: P.ED 10:52 → SUATTDRO 13:00 → P.EDIPHOLD 13:00 → P.MEDSURG 05-02 15:53
PROVIDERS: ATTEND Family Medicine
CPT/HCPCS: 36415; 70450; 71010; 71020; 71045; 71046; 80048; 80053; 81001; 82550; 82553; 82805; 82948; 83605; 84484; 85025; 85027; 85610; 85730; 87088; 93005; 94640; 94761; 94799; 96365; 96366; 96368; 96375; 96376; 99285; A9270; J0456; J0696; J1815; J1940; J7030; J7042; XXXXX

== ENCOUNTER 2019-05-06 11:12 | Inpatient (IN) ==
[2019-05-06] MEDS ORDERED: CLINDAMYCIN 600 MG/NS 600 MG/50 ML IVPB IV ONE (11:47)
[2019-05-06] MEDS ORDERED: NS 1,000 ML IV ONE (11:49)
[2019-05-06] MEDS ORDERED: HUMULIN R IV ONE (11:49)
--- NOTE | 2019-05-06 11:54 | PROVIDER DOCUMENTATION ---
HPI-Rash/Wound/ReCheck - General Chief Complaint: Sores/Lesions Stated Complaint: RIGHT FOOT PAIN Time Seen by Provider: 05/06/19 11:29 Source: patient Allergies/Adverse Reactions: Allergies Allergy/AdvReac Type Severity Reaction Status Date / Time shrimp Allergy SWELLING Verified 05/01/18 14:40 Home Medications: Home Medication List Medication Instructions Recorded Confirmed Last Taken Type Unobtainable [Home Meds 05/06/19 05/06/19 Unknown History Unobtainable] - History of Present Illness-Dermatology Nature of Presenting Problem: Patient is a 74 yom who presents with a ulcer to right 4th toe and erythema to dorsum of right foot x "a few days". Hx of IDDM. States forgot to take insulin this morning. Denies fever. Reports purulent exudate from ulcer. Denies any other complaints. Pt non-toxic. Review of Systems - Adult - REVIEW OF SYSTEMS - ADULT Constitutional: reports: no symptoms reported. denies: chills, fever Eyes: reports: no symptoms reported Ears, Nose, Mouth & Throat: reports: no symptoms reported Cardiovascular: reports: no symptoms reported Respiratory: reports: no symptoms reported Gastrointestinal: reports: no symptoms reported Genitourinary: reports: no symptoms reported Musculoskeletal: reports: no symptoms reported Integumentary: reports: see HPI Neurological: reports: no symptoms reported Psychiatric: reports: no symptoms reported Endocrine: reports: no symptoms reported Hematologic/Lymphatic: reports: no symptoms reported Allergic/Immunologic: reports: no symptoms reported All Other Systems: Reviewed and Negative Past History - Adult - PAST MEDICAL HISTORY-ADULT Review of Records: reports: Old Records Reviewed, Nursing Assessment Review, Medications Reviewed Major Childhood Illnesses: reports: denies history Cardiovascular: reports: denies history Respiratory: reports: denies history Gastrointestinal: reports: denies history Obstetrical/Gynecological: reports: denies history Genitourinary: reports: denies history Musculoskeletal: reports: denies history Neurological: reports: denies history Endocrine/Immune: reports: Diabetes Diabetes controlled by:: Insulin Dependent Other Conditions: reports: denies history - PRIOR SURGERIES/PROCEDURES Surgical/Procedure History: reports: reviewed, not pertinent - IMMUNIZATION STATUS Childhood Immunizations: See Nurse Assessment Flu Vaccine: See Nurse Assessment - FAMILY HISTORY Family History: reviewed, not pertinent - SOCIAL HISTORY Smoking: non-smoker Physical Exam-General - PHYSICAL EXAM-ADULT Initial Vital Signs Reviewed: Yes - CONSTITUTIONAL General Appearance: alert, no apparent distress. negative: lethargic, slow to respond - EYES Eyes: PERRL/EOMI - HEAD, EARS, NOSE, MOUTH & THROAT HENMT: normocephalic/atraumatic - NECK Neck: full range of motion, supple, normal inspection - RESPIRATORY Respiratory: no respiratory distress, no accessory muscle use - CARDIOVASCULAR Cardiovascular: normal peripheral pulses, no edema - MUSCULOSKELETAL Extremity: normal range of motion, normal capillary refill, erythema (dorsum of right foot and right 4th toe). negative: slow capillary refill - SKIN Integumentary: normal color, warm/dry, other (nickel-sized open lesion with yellow exudate noted to posterior 4th toe, surrounding erythema extending to dorsum of right foot noted). negative: cyanosis, diaphoresis, jaundice, mottled, pallor - NEUROLOGIC Neurologic: grossly normal, other (hx diabetic neuropathy in feet) - PSYCHIATRIC Psych/Mental Status: normal mood/affect, normal thought content, normal thought process, oriented x 3 Progress - PLAN OF CARE/RESULTS Progress/Plan/Lab Results: Vital Signs - 8 hr 05/06/19 11:18 05/06/19 12:46 05/06/19 13:35 Temperature 98 F Pulse Rate 67 66 63 Respiratory Rate 18 16 19 Blood Pressure 129/67 137/71 139/67 O2 Sat by Pulse Oximetry 96 95 97 Laboratory Results - last 24 hr 05/06/19 05/06/19 05/06/19 11:39 12:13 12:13 WBC 11.46 H RBC 4.39 L Hgb 13.6 L Hct 41.5 L MCV 94.5 MCH 31.0 MCHC 32.8 L RDW Std Deviation 11.7 Plt Count 215 MPV 11.5 H Immature Gran % (Auto) 0.3 Neut % (Auto) 74.8 Lymph % (Auto) 14.3 L [place] % (Auto) 10.1 H Eos % (Auto) 0.3 Baso % (Auto) 0.2 Immature Gran # (Auto) 0.03 Neut # (Auto) 8.58 H Lymph # (Auto) 1.64 [place] # (Auto) 1.16 H Eos # (Auto) 0.03 Baso # (Auto) 0.02 Sodium 131 L Potassium 4.3 Chloride 93 L Carbon Dioxide 22 L Anion Gap 16 BUN 20 Creatinine 1.1 Estimated GFR/1.73 m2 > 60 BUN/Creatinine Ratio 18 Glucose 577 H* POC Glucose 500 H D Calculated Osmolality 292 Calcium 8.4 L Phosphorus 3.1 Magnesium 2.0 Total Bilirubin 0.60 AST 13 ALT 14 Alkaline Phosphatase 105 Creatine Kinase 159 Troponin T High Sens Total Protein 6.1 L Albumin 3.4 L Globulin 3.0 Albumin/Globulin Ratio 1.0 Plasma Lactate Acetone Level NEGATIVE 05/06/19 05/06/19 12:13 12:13 WBC RBC Hgb Hct MCV MCH MCHC RDW Std Deviation Plt Count MPV Immature Gran % (Auto) Neut % (Auto) Lymph % (Auto) [place] % (Auto) Eos % (Auto) Baso % (Auto) Immature Gran # (Auto) Neut # (Auto) Lymph # (Auto) [place] # (Auto) Eos # (Auto) Baso # (Auto) Sodium Potassium Chloride Carbon Dioxide Anion Gap BUN Creatinine Estimated GFR/1.73 m2 BUN/Creatinine Ratio Glucose POC Glucose Calculated Osmolality Calcium Phosphorus Magnesium Total Bilirubin AST ALT Alkaline Phosphatase Creatine Kinase Troponin T High Sens 36 H Total Protein Albumin Globulin Albumin/Globulin Ratio Plasma Lactate 1.9 Acetone Level Orders Category Date Time Status Cardiac Monitoring DIRECTED Care 05/06/19 11:58 Active FSBS [Finger Stick Blood Sugar (ED)] DIRECTED Care 05/06/19 11:22 Active FSBS/Accucheck Result Q1H Care 05/06/19 11:58 Active Saline Loc NOW Care 05/06/19 11:47 Active Saline Loc NOW Care 05/06/19 11:58 Active Vital Signs Order Q1H Care 05/06/19 11:58 Active FOOT COMPLETE RIGHT [RAD] Stat Exams 05/06/19 11:47 Completed TOE(S)-RIGHT [RAD] Stat Exams 05/06/19 11:47 Completed ACETONE SERUM [CHEM] Stat Lab 05/06/19 12:13 Completed BLOOD CULTURE [BLDCUL] Stat Lab 05/06/19 12:15 Ordered CBC WITH DIFF [HEME] Stat Lab 05/06/19 12:13 Completed CK PROFILE [SP CHEM] Stat Lab 05/06/19 12:13 Completed COMPREHENSIVE METABOLIC PANEL [CHEM] Stat Lab 05/06/19 12:13 Completed LACTATE, PLASMA [CHEM] Stat Lab 05/06/19 12:13 Completed MAGNESIUM [CHEM] Stat Lab 05/06/19 12:13 Completed PHOSPHORUS [CHEM] Stat Lab 05/06/19 12:13 Completed TROPONIN T HIGH SENSITIVITY Stat Lab 05/06/19 12:13 Completed URINALYSIS [URINALYSIS] Stat Lab 05/06/19 11:58 Uncollected URINE DRUG SCREEN PL Stat Lab 05/06/19 11:58 Uncollected WOUND CULTURE INC GRAM STAIN [RM] Routine Lab 05/06/19 12:20 Ordered 0.9% Sodium Chloride Inj [Ns] 1,000 ml Med 05/06/19 12:00 Active IV 500 mls/hr 0.9% Sodium Chloride Inj [Ns] 1,000 ml Med 05/06/19 11:49 Discontinued IV 999 mls/hr CefTRIAXONE [Rocephin] 2 gm Med 05/06/19 12:12 Discontinued 0.9% Sodium Chloride Inj [Ns] 50 ml IV NOW Clindamycin 600 mg/D5w Med 05/06/19 13:00 Discontinued 600 mg in 50 ml IV NOW Clindamycin 600 mg/Ns Med 05/06/19 11:47 Discontinued 600 mg in 50 ml IV NOW Insulin Human Regular ([place] [Humulin R ([place])] Med 05/06/19 12:21 Discontinued 10 units .ROUTE .STK-MED ONE Insulin Human Regular [Humulin R] Med 05/06/19 11:49 Discontinued 10 unit IV NOW ONE Pharmacy Order [Vancomycin IV Per Pharmacy] Med 05/06/19 12:15 Active 1 each MISC DIRECTED Vancomycin 2,000 mg Med 05/06/19 14:00 Active 0.9% Sodium Chloride Inj [Ns] 500 ml IV Q18H EKG [EKG] Routine Ther 05/06/19 11:58 Ordered Result Diagrams: 05/06/19 12:13 05/06/19 12:13 - REASSESSMENT Reassessment #1 Time Reassessed: 13:49 Status: other (Pt in agreement with plan to admit.) - EKG 1 Time of EKG reading by physician:: 12:10 EKG Read and Signed by:: Johann Woodson EKG Interpretation (*Must complete 3 of following elements*): Normal Rate: 67 Rhythm: NSR QRS: normal ST Wave: normal - XRAY 1 XRAY: Right ([facility] - [address], [address], [place] [address] [place] [address] Department of Imaging Patient: SAHARA FARR EADM Date: 05/06/19MR#: [id number] : 1945DM Status: PRE ERAcct#: [id number] Age/Sex: 74/MRoom/Bed: Loc: P.ED Ordering Physician: Anny Ash Family Physician: None,PCP Reason for Procedure: cellulitis/diabetic ulcer ___ Signed EXAM: FOOT COMPLETE RIGHT 05/06/2019 HISTORY: cellulitis/diabetic ulcer TECHNIQUE: Right foot three views COMMENT: there is hypertrophic change in the first metatarsophalangeal joint with sclerosis. There is a slightly lesser degree of degeneration in the second metatarsal phalangeal joint and some hypertrophic changes are present in the bases of the other metatarsals. No evidence of acute fracture or dislocation is present. There are no previous studies. IMPRESSION: Severe degenerative changes particularly in the first metatarsophalangeal joint. The possibility of chronic septic arthritis cannot be excluded. Comparison with previous studies would be helpful in this regard. Electronically signed by Greg Hutton 05/06/2019 12:09 PM 05/06/19 1209 Interpreting Physician: Greg Hutton MD Dictated Date/Time: 05/06/19 1208 cc: Anny Ash; None,PCP) 2 XRAY: Right XRAY Study: other (TOES: [facility] - [address], [address], [place] [address] [place] [address] [place] [address] Department of Imaging Patient: SAHARA FARR EADM Date: 05/06/19MR#: [id number] : 1945DM Status: PRE ERAcct#: [id number] Age/Sex: 74/MRoom/Bed: Loc: P.ED Ordering Physician: Anny Ash Family Physician: None,PCP Reason for Procedure: ulcer, 4th toe, cellulitis, hx of DM Signed EXAM: TOE(S)- RIGHT 05/06/2019 HISTORY: ulcer, 4th toe, cellulitis, hx of DM TECHNIQUE: Right toes three views COMMENT: There is apparent osteolysis in the distal phalanx of the fourth toe. There is soft tissue swelling. There are hypertrophic changes in the base of the second proximal phalanx and metatarsophalangeal joint and degenerative changes in the first metatarsophalangeal joint. IMPRESSION: Erosion of the distal phalanx of the fourth toe which may be related to osteomyelitis. Electronically signed by Greg Hutton 05/06/2019 12:10 PM 05/06/19 1210 Interpreting Physician: Greg Hutton MD Dictated Date /Time: 05/06/19 1209 cc: Anny Ash; None,PCP) - CONSULTS/PCP/HOSPITALIST Notification #1 *Consult/PCP/Hospitalist*: Dr. Sweet Time Discussed: 13:49 Reason/Comments: admit- osteomyelitis Consult Disposition: Admit ( accepted admit, Dr. Sweet to enter orders.) Departure - Departure Date of Disposition Decision: 05/06/19 Time of Disposition Decision: 13:50 DIAGNOSIS: Osteomyelitis Qualifiers: Osteomyelitis type: unspecified type Osteomyelitis location: foot Laterality: right Qualified Code(s): M86.9 - Osteomyelitis, unspecified Diabetes Qualifiers: Diabetes mellitus type: type 2 Diabetes mellitus assisted insulin use: with assisted use Diabetes mellitus complication status: with hyperglycemia Qualified Code(s): E11.65 - Type 2 diabetes mellitus with hyperglycemia; Z79.4 - correction (current) use of insulin Disposition: ADMITTED INPATIENT 09 Certified Medical Emergency: Emergent Condition: Stable Referrals and Follow-Ups: None,PCP [Primary Care Provider] - - Critical Care Note This patient required my direct & personal management of CC.: No Attestation - Physician/ POLLY Attestation Patient care was provided by Advanced Practice Provider:: Yes Advanced Practice Provider:: Anny Ash Advanced Practice Provider documentation review:: The Mid-level provider documentation, treatment plan and medical decision making was reviewed by the physician who agrees with all treatment and medical decision making by the MLP. The physician spent face to face time with patient:: No Advanced Practice Provider documentation review:: Supervising physician onsite and consulted in the evaluation and care of this patient. The physician did not have a face to face encounter with the patient.
[2019-05-06] MEDS ORDERED: ROCEPHIN 2 GM in NS 50 ML IV ONE (12:12)
--- NOTE | 2019-05-06 12:12 | Diag Imaging Result Doc PS360 ---
EXAM: FOOT COMPLETE RIGHT 05/06/2019 HISTORY: cellulitis/diabetic ulcer TECHNIQUE: Right foot three views COMMENT: there is hypertrophic change in the first metatarsophalangeal joint with sclerosis. There is a slightly lesser degree of degeneration in the second metatarsal phalangeal joint and some hypertrophic changes are present in the bases of the other metatarsals. No evidence of acute fracture or dislocation is present. There are no previous studies. IMPRESSION: Severe degenerative changes particularly in the first metatarsophalangeal joint. The possibility of chronic septic arthritis cannot be excluded. Comparison with previous studies would be helpful in this regard. Electronically signed by Greg Hutton 05/06/2019 12:09 PM
--- NOTE | 2019-05-06 12:13 | Diag Imaging Result Doc PS360 ---
EXAM: TOE(S)-RIGHT 05/06/2019 HISTORY: ulcer, 4th toe, cellulitis, hx of DM TECHNIQUE: Right toes three views COMMENT: There is apparent osteolysis in the distal phalanx of the fourth toe. There is soft tissue swelling. There are hypertrophic changes in the base of the second proximal phalanx and metatarsophalangeal joint and degenerative changes in the first metatarsophalangeal joint. IMPRESSION: Erosion of the distal phalanx of the fourth toe which may be related to osteomyelitis. Electronically signed by Greg Hutton 05/06/2019 12:10 PM
[2019-05-06] MEDS ORDERED: VANCOMYCIN IV PER PHARMACY MISC SCH (12:15)
[2019-05-06] MEDS ORDERED: HUMULIN R (PARKWAY) ONE (12:21)
[2019-05-06 12:27] LABS: BASO# 0.02 X1000 (0.0-0.2); BASO% 0.2 % (0.0-0.8); EOS# 0.03 X1000 (0.0-0.7); EOS% 0.3 % (0.0-10.0); HEMATOCRIT 41.5 % (42.0-52.0); HEMOGLOBIN 13.6 g/dL (14.0-18.0); IMM GRAN# 0.03 X1000 (0.0-0.04); IMM GRAN% 0.3 % (0.0-0.5); LYMPH# 1.64 X1000 (1.2-3.4); LYMPH% 14.3 % (20.5-51.1); MCHC 32.8 g/dL (33-37); MCV 94.5 FL (81-99); MONO# 1.16 X1000 (0.11-0.59); MONO% 10.1 % (1.7-9.3); MPV 11.5 FL (7.4-10.4); NEUT# 8.58 X1000 (1.4-6.5); NEUT% 74.8 % (42.2-75.2); PLT 215 X1000 (130-400); RBC 4.39 XMIL (4.7-6.1); RDW 11.7 % (11.5-14.5); WBC 11.46 X1000 (4.8-10.8)
[2019-05-06 12:40] LABS: ESTIMATED GFR > 60
[2019-05-06 12:43] LABS: AGAP 16; ALBUMIN 3.4 g/dL (3.5-5.0); ALKALINE PHOSPHATASE 105 U/L (32-122); BUN 20 mg/dL (8-22); CALCIUM 8.4 mg/dL (8.8-10.2); CHLORIDE 93 mmol/L (98-107); CK PROFILE 159 U/L (24-204); COSMO 292; CREATININE 1.1 mg/dL (0.7-1.2); GOT 13 U/L (10-34); GPT 14 U/L (10-44); PHOSPHORUS 3.1 mg/dL (2.7-4.5); POTASSIUM 4.3 mmol/L (3.5-5.1); SODIUM 131 mmol/L (136-145); TCO2 22 mmol/L (25-35); TOTAL PROTEIN 6.1 g/dL (6.3-8.3)
[2019-05-06 12:46] LABS: GLUCOSE 577 mg/dL (70-104)
[2019-05-06] MEDS ORDERED: CLINDAMYCIN 600 MG/D5W 600 MG/50 ML IVPB IV ONE (13:00)
[2019-05-06] MEDS: NS 1,000 ML IV SCH ×2 (13:29→15:46)
[2019-05-06] MEDS: VANCOMYCIN 2,000 MG in NS 500 ML IV SCH (13:30)
[2019-05-06 13:39] LABS: ACETONE SERUM NEGATIVE (NEGATIVE)
[2019-05-06 14:13] LABS: URINE SOURCE CLEAN CATCH
[2019-05-06 14:33] LABS: UR AMPHETAMINES QUAL NONE DETECTED (NONE DETECT); UR BARBITUATES QUAL NONE DETECTED (NONE DETECT); UR BENZODIAZEPIN QUAL NONE DETECTED (NONE DETECT); UR CANNABINOIDS QUAL NONE DETECTED (NONE DETECT); UR COCAINE QUAL NONE DETECTED (NONE DETECT); UR METHADONE QUAL NONE DETECTED (NONE DETECT); UR METHAMPHETAMINE QUAL NONE DETECTED (NONE DETECT); UR OPIATES QUAL NONE DETECTED (NONE DETECT); UR OXYCODONE QUAL NONE DETECTED (NONE DETECT); UR PCP QUAL NONE DETECTED (NONE DETECT); UR PROPOXYPHENE QUAL NONE DETECTED (NONE DETECT); UR TCA QUAL NONE DETECTED (NONE DETECT)
--- NOTE | 2019-05-06 14:34 | EKG Report ---
Test Performed on : 05/06/2019 12:07:22 PM Test Reason : DKA ALERT Blood Pressure : / mmHG Vent. Rate : 067 BPM Atrial Rate : 067 BPM P-R Int : 166 ms QRS Dur : 092 ms QT Int : 424 ms P-R-T Axes : 067 071 066 degrees QTc Int : 448 ms Normal sinus rhythm. Normal ECG When compared with ECG of 01-MAY-2018 11:40, Previous ECG has undetermined rhythm, needs review QRS duration has decreased Minimal criteria for Anterior infarct are no longer present Minimal criteria for Inferior infarct are no longer present T wave inversion no longer evident in Inferior leads Nonspecific T wave abnormality no longer evident in Lateral leads QT has shortened Unconfirmed Result
[2019-05-06 14:43] LABS: BILIRUBIN URINE NEGATIVE (NEGATIVE); BLOOD URINE NEGATIVE (NEGATIVE); COLOR YELLOW; GLUCOSE URINE >1000 mg/dL (NEGATIVE); KETONE URINE NEGATIVE (NEGATIVE); LEUKOCYTES URINE NEGATIVE (NEGATIVE); NITRITE URINE NEGATIVE (NEGATIVE); PROTEIN URINE NEGATIVE (NEGATIVE); SP GRAVITY URINE 1.033; TURBIDITY URINE CLEAR (CLEAR); UROBILINOGEN URINE NORMAL (NORMAL)
[2019-05-06 14:45] LABS: UR EPITHELIAL CELLS <10 /HPF (<10); URINE BACTERIA NEGATIVE /HPF; URINE RBC <10 /HPF (<10); URINE WBC <10 /HPF (<10)
[2019-05-06] MEDS ORDERED: ZOFRAN IV PRN (17:33)
[2019-05-06] MEDS ORDERED: TYLENOL PO PRN (17:33)
[2019-05-06] MEDS: ZOSYN 3.375 GM in NS 50 ML IV SCH ×2 (18:18→23:11)
[2019-05-06] MEDS: AMBIEN PO SCH (23:11)
--- NOTE | 2019-05-07 04:02 | HISTORY AND PHYSICAL ---
CHIEF COMPLAINT: Right foot pain. HISTORY OF PRESENT ILLNESS: The patient is a 74-year-old male who has an ulcer on the right foot 4th toe with erythema of the dorsum of the foot. States this started a few days ago. Noted he started having some swelling up into his leg and calf area as well. Of note, the patient does have an amputation of his left great toe approximately 8 years ago, but he states this was from a spider bite. ALLERGIES: Shrimp. MEDICATIONS: The patient does not have an accurate medication list currently. REVIEW OF SYSTEMS: Denies any fevers, chills, cough, congestion. Denies chest pain or palpitations. Denies dysuria, urinary frequency, urgency. PAST MEDICAL HISTORY: Significant for diabetes. SURGICAL HISTORY: Amputation of left great toe. FAMILY HISTORY: Noncontributory. SOCIAL HISTORY: Patient notes he does not smoke or drink. PHYSICAL EXAMINATION: VITAL SIGNS: Reviewed. Temperature 98 degrees, pulse 67, respiratory rate 18, BP 129/67, saturating 96% on room air. GENERAL: Patient is awake, pleasant, in no distress. HEENT: Normocephalic. NECK: Supple. CARDIOVASCULAR: Regular rate. CHEST: Clear. ABDOMEN: Soft. EXTREMITIES: Moves all extremities. He does have a nickel-sized open lesion with yellowish drainage to the posterior surface of his right 4th toe with surrounding erythema into the mid dorsum of the foot. He has 1+ edema in his right calf, trace in his left. NEUROLOGIC: The patient is awake, alert, oriented. He does have decreased sensation in his feet bilaterally. ASSESSMENT: 1. Osteomyelitis, distal phalanx 4th toe with cellulitis. 2. Hyponatremia. 3. Diabetes with hyperglycemia. PLAN: We are going to continue patient in the hospital on antibiotics, fluids, sugar control and we will follow. cc: Juan Pablo Sweet MD
[2019-05-07] MEDS: ZOSYN 3.375 GM in NS 50 ML IV SCH ×3 (05:23→19:59)
[2019-05-07 07:29] LABS: HEMATOCRIT 38.1 % (42.0-52.0); HEMOGLOBIN 12.2 g/dL (14.0-18.0); MCH 30.6 PG (27-31); MCV 95.5 FL (81-99); RBC 3.99 XMIL (4.7-6.1); RDW 11.8 % (11.5-14.5); WBC 11.16 X1000 (4.8-10.8)
[2019-05-07 07:39] LABS: HEMOGLOBIN A1C 13.8 % (4.8-6.0)
[2019-05-07 07:43] LABS: AGAP 13; ALKALINE PHOSPHATASE 91 U/L (32-122); BUN 15 mg/dL (8-22); CHLORIDE 99 mmol/L (98-107); COSMO 277; CREATININE 1.1 mg/dL (0.7-1.2); ESTIMATED GFR > 60; GLUCOSE 281 mg/dL (70-104); GOT 17 U/L (10-34); GPT 13 U/L (10-44); POTASSIUM 4.1 mmol/L (3.5-5.1); SODIUM 133 mmol/L (136-145); TCO2 20 mmol/L (25-35); TOTAL PROTEIN 6.1 g/dL (6.3-8.3)
[2019-05-07] MEDS: VANCOMYCIN 2,000 MG in NS 500 ML IV SCH (08:47)
[2019-05-07] MEDS: NORVASC PO SCH (08:48)
[2019-05-07] MEDS: PROZAC PO SCH (08:48)
[2019-05-07] MEDS: LASIX PO SCH (08:49)
[2019-05-07] MEDS: TENORMIN PO SCH (08:49)
[2019-05-07] MEDS: ACTOS PO SCH (13:34)
--- NOTE | 2019-05-07 16:28 | PROGRESS NOTE ---
DATE: 05/07/2019 SUBJECTIVE: Patient states he is feeling okay. Denies any fevers or chills. Denies cough, congestion. OBJECTIVE: Vital Signs: T-max 101.8 degrees, T-current 99.1, pulse 78, respiratory rate 18, BP 161/69. General: Patient is awake, pleasant. No distress. HEENT: Normocephalic. Neck: Supple. Cardiovascular: Regular rate. Chest: Clear. Abdomen: Soft. Extremities: Moves all extremities. ASSESSMENT: 1. Right foot cellulitis. 2. Febrile illness, likely secondary to sepsis from his right foot cellulitis. 3. Osteomyelitis right foot 4th toe. 4. Hyponatremia. 5. Diabetes with hyperglycemia with an A1c at home of 13. PLAN: We are going to continue patient in the hospital. Continue antibiotics, sugar control and will follow. cc: Juan Pablo Sweet MD
[2019-05-07] MEDS: HUMALOG (PARKWAY) SUBQ SCH ×2 (17:51→21:35)
[2019-05-07] MEDS ORDERED: LEVEMIR INSULIN *HA SUBQ SCH (21:00)
[2019-05-07] MEDS: AMBIEN PO SCH (21:32)
[2019-05-08] MEDS: ZOSYN 3.375 GM in NS 50 ML IV SCH ×4 (01:13→21:04)
[2019-05-08] MEDS: VANCOMYCIN 2,000 MG in NS 500 ML IV SCH (02:28)
[2019-05-08] MEDS: HUMALOG (PARKWAY) SUBQ SCH ×5 (06:06→16:59)
[2019-05-08] MEDS: NORVASC PO SCH (09:52)
[2019-05-08] MEDS: LASIX PO SCH (09:53)
[2019-05-08] MEDS: PROZAC PO SCH (09:53)
[2019-05-08] MEDS: TENORMIN PO SCH (09:53)
[2019-05-08] MEDS: ACTOS PO SCH ×2 (09:54→14:56)
--- NOTE | 2019-05-08 12:13 | PROGRESS NOTE ---
DATE: 05/08/2019 SUBJECTIVE: Patient has no complaints. PHYSICAL EXAMINATION: Vital Signs: Reviewed. Temp 98 degrees, pulse 64, respiratory rate 18, BP 128/67. General: Patient is pleasant. No distress. HEENT: Normocephalic. Neck: Supple. Cardiovascular: Regular rate. Chest: Clear. Abdomen: Soft. Extremities: Moves all extremities. ASSESSMENT: 1. Osteomyelitis, distal phalanx, 4th toe. 2. Diabetes with hyperglycemia. Blood sugar was elevated in the 400s yesterday, currently down to 76. We have restarted his home medications, added sliding scale insulin and will follow. 3. Hyponatremia improved. 4. Sepsis appears resolved. 5. Gram-positive cocci growing in his wound. PLAN: We will continue patient in the hospital. I certainly expect he may need surgical intervention, but given the current state with COVID-19 all nonemergent surgeries have been postponed. We will talk to surgery about plans. Therefore, we will continue antibiotics, and will follow. cc: Juan Pablo Sweet MD MTDD
--- NOTE | 2019-05-08 17:36 | GENERAL SURGERY CONSULTATION ---
DATE: 05/08/2019 REASON FOR CONSULTATION: Right foot infection. CHIEF COMPLAINT: Right foot pain. HISTORY OF PRESENT ILLNESS: This is a 74-year-old gentleman who has longstanding diabetes poorly controlled. He presented with a several day history of worsening pain, swelling and discoloration of his right 4th toe. He has a history of left 1st toe amputation 8 years ago. He is admitted imaging showed osteomyelitis of the right 4th toe. He has been started on antibiotics. He was initially very hyperglycemic. This has improved to some degree. I was consulted. MEDICAL HISTORY: Diabetes. SURGICAL HISTORY: Left 1st toe amputation. FAMILY HISTORY: Reviewed and noncontributory. SOCIAL HISTORY: He does not smoke. He does not drink. REVIEW OF SYSTEMS: Ten point negative other than what is mentioned history of present illness. PHYSICAL EXAMINATION: Vital Signs: He is afebrile, pulse 64,blood pressure 154/74. Oxygen saturation 96% on room air. General: He is alert. HEENT: No scleral icterus. No cervical mass. Cardiovascular: Normal rate. Pulmonary: No increased work of breathing. Abdomen: Soft, nontender. Integument: Warm and dry. Psychiatric: Appropriate affect. Peripheral Vascular: Peripheral vascular well-perfused. There is some edema in his right calf. Musculoskeletal: His right 4th toe has gross purulence, necrosis and exposed bone distally. There is some cellulitis extending up the foot but no crepitant's. His left first toe is surgically absent. Neurologic: Decreased sensation bilateral feet. Psychiatric: Appropriate affect. LABS: White count 11 yesterday, hematocrit 38 creatinine is 1.1 glucose down 132, but has been as high as 577 since he has been here. ASSESSMENT/PLAN: 72-year-old gentleman with a severe infection of right 4th toe. He has osteomyelitis type changes. I recommended amputation of the right 4th toe tomorrow. We will continue local wound care as current and antibiotics. I have posted it and will keep him NPO at midnight. I discussed risks of bleeding, infection, delayed healing, progression to subsequent amputation, and even loss of the foot. He understands all this and consents. cc: Brittany Bryson MD
[2019-05-08] MEDS ORDERED: ZOFRAN IV PRN (18:43)
[2019-05-08] MEDS ORDERED: TYLENOL PO PRN (18:43)
[2019-05-08] MEDS ORDERED: VANCOMYCIN IV PER PHARMACY MISC SCH (18:45)
[2019-05-08] MEDS ORDERED: VANCOMYCIN 2,000 MG in NS 500 ML IV SCH (20:00)
[2019-05-08] MEDS: AMBIEN PO SCH (21:05)
[2019-05-08] MEDS: LEVEMIR SUBQ SCH (22:26)
[2019-05-08] MEDS: HUMALOG SUBQ SCH (22:27)
[2019-05-08] MEDS ORDERED: INSULIN PEN NEEDLES ONE (22:32)
[2019-05-09] MEDS ORDERED: ZOSYN ONE (02:08)
[2019-05-09] MEDS: ZOSYN 3.375 GM in NS 50 ML IV SCH ×4 (02:12→21:30)
[2019-05-09] MEDS ORDERED: D50W SYRINGE IV ONE (06:45)
[2019-05-09] MEDS ORDERED: D50W SYRINGE ONE (06:58)
[2019-05-09] MEDS: HUMALOG SUBQ SCH ×4 (06:59→21:39)
[2019-05-09] MEDS: TENORMIN PO SCH (08:22)
[2019-05-09] MEDS ORDERED: XYLOCAINE-MPF 2% ONE (08:26)
[2019-05-09] MEDS ORDERED: ROBINUL ONE (08:26)
[2019-05-09] MEDS ORDERED: DIPRIVAN 1% ONE (08:26)
[2019-05-09] MEDS ORDERED: LASIX PO SCH (09:00)
[2019-05-09] MEDS ORDERED: ZOFRAN ONE (09:01)
[2019-05-09] MEDS ORDERED: MORPHINE ONE (09:02)
--- NOTE | 2019-05-09 12:31 | OPERATIVE NOTE ---
PROCEDURE DATE: 05/09/2019 PREOPERATIVE DIAGNOSIS: Diabetic foot infection of the right fourth toe. POSTOPERATIVE DIAGNOSIS: Diabetic foot infection of the right fourth toe. PROCEDURE PERFORMED: Amputation of the right fourth toe. ESTIMATED BLOOD LOSS: 10 mL. SPECIMENS: Right fourth toe. ANESTHESIA: General. INDICATIONS: This is a 74-year-old gentleman with poorly-controlled diabetes who developed, over the last couple of weeks, worsening swelling and necrotic changes with exposed bone in his right fourth toe. FINDINGS: There were necrotic ulcerative changes and swelling of his right fourth toe with purulence extending down the metatarsal joint. Adjacent toes and soft tissues were healthy. OPERATIVE NOTE: The risks, benefits, and alternatives were discussed with the patient. He consented to the procedure. He was seen preoperatively, and the surgical site was confirmed and marked. He was taken to the operating room and placed in the supine position. General anesthesia was induced without complication. All bony prominences were padded. His foot was prepped with Betadine and draped in the usual fashion. After a time-out, an elliptical incision was made around the toe and carried down to the metatarsal joint. The toe was amputated. Hemostasis was obtained with electrocautery. We then used bone forceps to debride back the metatarsal head, back to healthy bleeding bone. We did this relatively promptly without significant loss of bone. We confirmed hemostasis, irrigated the wound. Vashe, Kerlix, and a loose Arnoldo were applied. He tolerated it well. No complications. cc: Brittany Bryson MD MTDD
[2019-05-09] MEDS: VANCOMYCIN 2,200 MG in NS 500 ML IV SCH (13:01)
[2019-05-09] MEDS: NORVASC PO SCH (13:01)
[2019-05-09] MEDS: PROZAC PO SCH (13:02)
[2019-05-09] MEDS: ACTOS PO SCH (13:02)
--- NOTE | 2019-05-09 13:10 | PROGRESS NOTE ---
DATE: 05/09/2019 SUBJECTIVE: This patient came back from the OR a few moments ago. He is tolerating p.o. at this moment. He does not complaint of chest pain or shortness of breath. He has a right fourth toe amputation due to diabetic foot infection of the fourth toe. He seems to be stable. He does have uncontrolled diabetes, and actually his hemoglobin A1c is 13.8. His blood sugars today seem to be fine. I do not think he is using his treatment at home like he should. We will continue with the same management for now. He has been placed back on his home medication, including Detemir. Let us see how he does. OBJECTIVE: Vital Signs: Temperature 97.4 degrees, pulse 52, respiratory rate 20, blood pressure 125/63, oxygen saturation 97% on 2 L of nasal cannula. HEENT: Head normocephalic. No trauma. PERRLA. Neck: Supple. No JVD. No masses. Central trachea. Chest: Clear to auscultation. No wheezing. No rales. Abdomen: Soft. Extremities: No edema, no clubbing. He has a dressing covering his fourth right toe, which has been amputated with some blood on it. His left big toe has been amputated as well a long time ago. Neurological: The patient is awake, alert. He is oriented. No focal deficits. LABORATORY DATA: Glucose 102. ASSESSMENT AND PLAN: 1. Osteomyelitis of the fourth toe, right side. This has been amputated today. Will continue with the same management. Surgery on board. 2. Uncontrolled type 2 diabetes. Will continue with the same management. He has been placed back on his home medications. 3. Hyponatremia. This is likely pseudohyponatremia due to elevated high blood sugar. Will recheck the BMP tomorrow. 4. Sepsis. This patient was admitted with leukocytosis, fever, and a source of infection. This is getting better. 5. Enterococcal faecalis and diphtheroids of his right foot, which so far has been pansensitive. Continue with Zosyn for now, and vancomycin. I will recheck his blood work tomorrow. Probably, this patient can be discharged with penicillin VK. cc: Campbell Ragsdale MD
[2019-05-09] MEDS: LEVEMIR SUBQ SCH (21:31)
[2019-05-09] MEDS: AMBIEN PO SCH (21:38)
[2019-05-09] MEDS: NORCO-7.5 PO PRN (22:53)
[2019-05-10] MEDS: ZOSYN 3.375 GM in NS 50 ML IV SCH (02:50)
[2019-05-10] MEDS: VANCOMYCIN 2,200 MG in NS 500 ML IV SCH (05:49)
[2019-05-10] MEDS: HUMALOG SUBQ SCH ×5 (06:49→21:44)
[2019-05-10 07:06] LABS: BASO# 0.09 X1000 (0.0-0.2); BASO% 1.1 % (0.0-0.8); EOS# 0.17 X1000 (0.0-0.7); EOS% 2.1 % (0.0-10.0); HEMATOCRIT 38.2 % (42.0-52.0); HEMOGLOBIN 11.9 g/dL (14.0-18.0); IMM GRAN# 0.04 X1000 (0.0-0.04); IMM GRAN% 0.5 % (0.0-0.5); LYMPH# 1.77 X1000 (1.2-3.4); LYMPH% 21.8 % (20.5-51.1); MCH 30.4 PG (27-31); MCHC 31.2 g/dL (33-37); MCV 97.4 FL (81-99); MONO# 1.04 X1000 (0.11-0.59); MONO% 12.8 % (1.7-9.3); NEUT# 5.01 X1000 (1.4-6.5); NEUT% 61.7 % (42.2-75.2); PLT 256 X1000 (130-400); RBC 3.92 XMIL (4.7-6.1); RDW 12.5 % (11.5-14.5); WBC 8.12 X1000 (4.8-10.8)
[2019-05-10 07:24] LABS: CALCIUM 8.7 mg/dL (8.8-10.2); CREATININE 1.5 mg/dL (0.7-1.2)
[2019-05-10 07:38] LABS: LYMPHS 16 % (21-51); MONO 18 % (1-9); SEGS 64 % (42-75)
[2019-05-10] MEDS: PROZAC PO SCH (08:52)
[2019-05-10] MEDS: NORVASC PO SCH (08:53)
[2019-05-10] MEDS: ACTOS PO SCH (08:53)
[2019-05-10] MEDS: TENORMIN PO SCH (08:53)
[2019-05-10] MEDS: PEN VK PO SCH ×2 (12:37→21:45)
--- NOTE | 2019-05-10 13:22 | PROGRESS NOTE ---
DATE: 05/10/2019 SUBJECTIVE: The patient seems to be feeling better. His wound is covered. His creatinine increased from 1.1 to 1.5, BUN about the same. It looks like he has been having a good urine output. I will stop the IV vancomycin and I will put him on penicillin VK since he has a culture that showed Enterococcus faecalis. OBJECTIVE: Vital Signs: Temperature 97.7 degrees, pulse 56, respiratory rate 20, blood pressure 132/75, oxygen saturation 96 on room air. HEENT: Head normocephalic. No trauma. PERRLA. Neck: Supple. No JVD. No masses. Central trachea. Chest: Clear to auscultation. No wheezing. No rales. Abdomen: Soft. Extremities: No edema. His right lower extremity is a little bit edematous compared with the left lower extremity. His fourth right toe has been amputated. His left big toe has been amputated as well a long time ago. Neurological Examination: The patient is awake and alert. He is oriented. No focal deficits. Laboratory: WBC 8.1, hemoglobin 11.9, hematocrit 38.2, platelets 256,000. Sodium 137, potassium 4, chloride 100, bicarbonate 26, BUN 16, creatinine 1.5, glucose 132, calcium 8.7. ASSESSMENT AND PLAN: 1. Osteomyelitis of the fourth toe, right side, status post amputation, postoperative day #1. Continue with the same management. Surgery on board. I have placed this patient on oral antibiotics. 2. Uncontrolled type 2 diabetes. Continue with the same management. His hemoglobin A1c is 13.8. It looks like he has not been taking care of his blood sugar at home. At this moment, his blood sugar seems to be more stable but he came in with a blood sugar of 577. 3. Hyponatremia, likely pseudohyponatremia due to elevated blood sugar, aware, resolved. 4. Sepsis. This patient has been admitted with leukocytosis, fever, and a source of infection. This is getting better. 5. Enterococcus faecalis and diphtheroids to his right foot, pansensitive. I have placed this patient on penicillin VK by mouth since he has already an amputation. cc: Campbell Ragsdale MD
--- NOTE | 2019-05-10 14:15 | GENERAL SURGERY PROGRESS NOTE ---
DATE: 05/10/2019 SUBJECTIVE: Feels well, minimal pain in his foot. OBJECTIVE: No fevers. Pulse 56, blood pressure 132/75. Oxygen saturation 96% on 2 L. General: He is alert. His right foot dressing is clean. LABORATORIES: White count is normal at 8, creatinine is up to 1.5. His antibiotics have been stopped. He is growing enterococcus out of his wound that is sensitive to ampicillin. ASSESSMENT AND PLAN: This is a gentleman with a diabetic toe infection on the right, status post amputation. I feel we have adequate source control. We will continue local wound care and antibiotics. He will need these for at least 2 weeks[address] I talked to Dr. Angel about this. cc: Brittany Bryson MD
[2019-05-10] MEDS: AMBIEN PO SCH (21:45)
[2019-05-10] MEDS: LEVEMIR SUBQ SCH (21:46)
[2019-05-10] MEDS: NORCO-7.5 PO PRN (21:46)
[2019-05-11 06:28] LABS: CALCIUM 8.7 mg/dL (8.8-10.2); CREATININE 1.3 mg/dL (0.7-1.2); POTASSIUM 3.8 mmol/L (3.5-5.1)
[2019-05-11] MEDS: PEN VK PO SCH ×3 (07:36→22:47)
[2019-05-11] MEDS: NORCO-7.5 PO PRN ×3 (07:36→22:47)
[2019-05-11] MEDS: HUMALOG SUBQ SCH ×4 (07:37→22:48)
--- NOTE | 2019-05-11 08:54 | GENERAL SURGERY PROGRESS NOTE ---
DATE: 05/11/2019 SUBJECTIVE: Feels okay. Some pain in his foot. He had some bleeding overnight. No fevers. No tachycardia. OBJECTIVE: Vital signs: Blood pressure 147/67. General: He is alert. Extremities: His right foot wound is clean. There is healthy bleeding tissue noted. LABORATORY: His white count was normal yesterday. Creatinine is down to 1.3 today. Electrolytes are okay. Glucose remains occasionally in the 200s. ASSESSMENT AND PLAN: This is a 74-year-old gentleman status post right fourth toe amputation. Will continue with local wound care. He has been switched to oral antibiotics. I would like to monitor his renal function through the day today and plan for possible home tomorrow. He will need offloading shoe, home health for wound care. cc: Brittany Bryson MD
[2019-05-11] MEDS: TENORMIN PO SCH (08:57)
[2019-05-11] MEDS: ACTOS PO SCH (08:58)
[2019-05-11] MEDS: PROZAC PO SCH (08:58)
[2019-05-11] MEDS: NORVASC PO SCH (08:59)
--- NOTE | 2019-05-11 13:14 | PROGRESS NOTE ---
DATE: 05/11/2019 SUBJECTIVE: The patient seems to be doing better. He is making good urine. He is still on antibiotics p.o. I think he is getting better. Surgery Department on board and the plan is probably to send this patient home tomorrow. PHYSICAL EXAMINATION: Vital Signs: Temperature 98.4 degrees, pulse 50, respiratory rate 16, blood pressure 135/65, oxygen saturation 97% on room air. HEENT: Head normocephalic. No trauma. PERRLA. Neck: Supple. No JVD. No masses. Central trachea. Chest: Clear to auscultation. No wheezing. No rales. Abdomen: Soft, nontender, nondistended. No hepatosplenomegaly. Extremities: His right lower extremity is a little bit edematous compared with the left lower extremity. His 4th right toe has been amputated, recently, and his left big toe has been amputated before. Neurologic: The patient is awake, alert. He is oriented. No focal deficits. LABORATORY: Sodium 137, potassium 3.8, chloride 102, bicarbonate 25, BUN 15, creatinine 1.3, glucose 207, calcium 8.7. ASSESSMENT AND PLAN: 1. Osteomyelitis of the 4th toe, right-sided, status post amputation postoperative day #2. Continue with same management. Surgery on board. I will continue with oral antibiotics due to enterococcal faecalis and diphtheroids infection. 2. Uncontrolled type 2 diabetes. Continue with same management. Hemoglobin A1c is elevated at 13.8, it looks like he has not been taking care of the blood sugar at home. At this moment, his blood sugar seems to be more stable but initially it was around 577. 3. Hyponatremia, likely pseudohyponatremia due to elevated blood sugar, aware. 4. Sepsis. This patient was admitted with leukocytosis, fever, and a source of infection, which is getting better. 5. Enterococcal faecalis and diphtheroids infection in the right foot, pansensitive. Continue with penicillin-VK by mouth since he already has the amputation. cc: Campbell Ragsdale MD
[2019-05-11] MEDS: AMBIEN PO SCH (22:47)
[2019-05-11] MEDS: LEVEMIR SUBQ SCH (22:48)
[2019-05-12] MEDS: PEN VK PO SCH (06:37)
[2019-05-12] MEDS: NORCO-7.5 PO PRN (06:37)
[2019-05-12] MEDS: HUMALOG SUBQ SCH ×2 (07:00→11:44)
[2019-05-12 07:32] LABS: CALCIUM 9.3 mg/dL (8.8-10.2); CREATININE 1.2 mg/dL (0.7-1.2); POTASSIUM 4.4 mmol/L (3.5-5.1)
[2019-05-12 07:42] VITALS: BP 172/75
[2019-05-12] MEDS: TENORMIN PO SCH (08:59)
[2019-05-12] MEDS: NORVASC PO SCH (08:59)
[2019-05-12] MEDS: PROZAC PO SCH (09:00)
[2019-05-12] MEDS: ACTOS PO SCH (09:01)
--- NOTE | 2019-05-12 11:06 | GENERAL SURGERY PROGRESS NOTE ---
DATE: 05/12/2019 SUBJECTIVE: Dressing changes going well. No fevers. No tachycardia. Pain is controlled. He has been transitioned to oral antibiotics. I reviewed his labs. His renal function continues to improve. It is down to 1.2, now near his baseline. ASSESSMENT/PLAN: A 74-year-old gentleman status post right fourth toe amputation. We will continue local wound care, dressing changes with saline and Vashe twice a day. I will see him at [facility] in 1 to 2 weeks. He has been sent out with appropriate course of oral antibiotics. I have given him detailed wound instructions and strict offloading precautions. cc: Brittany Bryson MD
[2019-05-12] MEDS ORDERED: FLU VACCINE IM ONE (11:26)
--- NOTE | 2019-05-12 14:23 | DISCHARGE SUMMARY ---
ADMISSION DATE: 05/06/2019 DISCHARGE DATE: 05/12/2019 DISCHARGE DIAGNOSES: 1. Osteomyelitis of the right 4th toe status post amputation, postoperative day #3. 2. Uncontrolled type 2 diabetes with a hemoglobin A1c of 13.8. 3. Hyponatremia. 4. Sepsis due to 4th right toe infection, osteomyelitis. 5. Enterococcal faecalis and diphtheroids infection in the right foot, which is pansensitive. PROCEDURES PERFORMED: 1. Foot x-ray dated 05/06/2019. Impression: Severe degenerative changes, particularly in the 1st metatarsophalangeal joint, the possibility of chronic septic arthritis cannot be excluded. 2. Toe x-ray dated 05/06/2019. Erosion of the distal phalanx of the 4th toe which may be related to osteomyelitis. 3. Amputation of the right 4th toe dated 05/09/2019 by Surgery Department. HOSPITAL COURSE: A 74-year-old male with a past medical history of uncontrolled diabetes, previous toe amputation, left great toe, admitted on 05/06/2019 due to an ulcer to the right foot, 4th toe with erythema of the dorsum of the foot. Apparently, this started a few days ago, noted that he had some swelling that goes up into the right leg and calf. He was evaluated by Surgery Department, who decided to take him to surgery and do an amputation of that area. X- ray showed osteomyelitis of the distal phalanx of the 4th toe. We had a positive culture that showed Enterococcus faecalis and diphtheroids sensitive to penicillin VK, so we stopped the IV treatment and put her on p.o. antibiotics. I had a large conversation with this patient about his insulin treatment, it has been really uncontrolled, and his hemoglobin A1c was elevated at 13.8. I told the patient that if he does not control the blood sugar, the infection is going to be happening frequently and he may lose some more toes and even his legs, he seems to understand. After the amputation of the fourth right toe, he did well. He had a slight elevation of the creatinine that resolved after stopping the vancomycin and Lasix. The patient seems to be doing much better. He has been evaluated by Surgery Department and they will follow this patient up as an outpatient. I will continue with antibiotics for at least a few more days, 5 days, and he will be evaluated by the surgeon in 1 week. OBJECTIVE: Vital Signs: Temperature 97.7 degrees, pulse 58, respiratory rate 18, blood pressure 172/75, oxygen saturation 94% on 2 L of nasal cannula. HEENT: Head normocephalic, no trauma. PERRLA. Neck: Supple. No JVD. No masses. Central trachea. Chest: Clear to auscultation. No wheezing. No rales. Abdomen: Soft, nontender, nondistended. No hepatosplenomegaly. Extremities: His right lower extremity is a little bit edematous compared with the left lower extremity. His 4th right toe has been amputated and is covered with a dressing. He has also an amputation of the left great toe. Neurological: Awake, alert, he is oriented. LABORATORY DATA: Sodium 136, potassium 4.4, chloride 102, bicarbonate 23, BUN 15, creatinine 1.2, glucose 196, calcium 9.3. DISCHARGE MEDICATIONS: 1. Acetaminophen 650 mg p.o. q.6 hours. 2. Amlodipine 10 mg p.o. daily. 3. Atenolol 100 mg p.o. daily. 4. Prozac 30 mg p.o. daily. 5. Furosemide 40 mg p.o. daily, and this patient has been instructed to start furosemide in 3 to 4 days. 6. [place] 7.5 p.o. q.6 hours as needed for pain. 7. Levemir 50 units subcutaneous at bedtime. 8. Victoza 1.8 mg subcutaneously daily. 9. Penicillin VK 500 mg p.o. every 8 hours 10. Pioglitazone 45 mg p.o. daily. 11. Ambien 10 mg p.o. at bedtime. FOLLOWUP: Follow up with Surgery Department, Dr. Bryson, [facility] The patient has refused to get home health at home. All the instructions were given to the patient and he agreed with that. cc: Campbell Ragsdale MD
== END 2019-05-12 12:00 | disposition home or self-care (01) | DRG 854 ==
LOC: P.ED 11:12 → P.MEDSURG 16:16 → SUATTDRO 16:16 → 4N 05-08 18:37
PROVIDERS: ATTEND Internal Medicine